=== PATIENT | female | born 1940 | race Caucasian/White ===

== ENCOUNTER → 2023-09-18 09:50 | Outpatient (REF) | payer OTHER, SELFPAY | LOC: PAVMRI 09:50 | PROVIDERS: ATTENDING PHYSICIAN Psychiatry & Neurology Neurology; FAMILY PHYSICIAN Student in an Organized Health Care Education/Training Program | DX: R41.3 Other amnesia (principal) | CPT/HCPCS: 70553; A9575 ==

== ENCOUNTER → 2024-08-21 12:26 | Outpatient (REF) | payer OTHER, SELFPAY | LOC: HWRAD 12:26 | PROVIDERS: ATTENDING PHYSICIAN Student in an Organized Health Care Education/Training Program | DX: R22.9 Localized swelling, mass and lump, unspecified (principal) | CPT/HCPCS: 76882 ==

== ENCOUNTER → 2024-10-23 11:53 | Outpatient (REF) | payer OTHER, SELFPAY | LOC: PAVMRI 11:53 | PROVIDERS: ATTENDING PHYSICIAN Student in an Organized Health Care Education/Training Program | DX: R22.30 Localized swelling, mass and lump, unspecified upper limb (principal) | CPT/HCPCS: 70543; A9575 ==

== ENCOUNTER 2025-03-24 12:40 | Emergency (ER) | payer OTHER, SELFPAY ==
[2025-03-24 12:44] VITALS: BP 136/56
--- NOTE | 2025-03-24 15:52 | ED.GENMED ---
History of Present Illness
General
Chief Complaint: Fall
Time Seen by Provider: 03/24/25 14:36
History of Present Illness
History of Present Illness:
75-year-old female with past medical history of hyperlipidemia and dementia who presented for tripping and falling last evening on the stairs and striking her right shoulder on the ground. No head strike or loss of consciousness. Fall was
witnessed by her . Since the fall she has been complaining of right shoulder pain and is having difficulty moving the shoulder secondary to the pain. No other associated symptoms denies any headache, shortness of breath, chest pain, blurry
vision or neck pain.
Past History
Past History
ED Past Medical History: Arrthythmia, Hypercholesterolemia, Psychiatric (Anxiety) and Other (Spinal stenosis)
ED Past Surgical History: Orthopedic (Right total knee replacement)
Social History
Tobacco: Non-smoker
Alcohol: None
Personal:
Living: with family
Family History
Family History: Other (Kidney stones)
Phy Exam
General Physical Exam
General Presentation: well appearing and no apparent distress
General Skin: warm and dry
General Habitus: normal
General Mental: alert
General Hydration: appears well hydrated
ENT Exam
ENT Exam: EOMI, pharynx normal, neck supple and normocephalic
Eye Exam
Eye Exam: PERRL, cornea clear and conjunctiva normal
Cardiovascular Exam
Cardiovascular Exam: regular rate/rhythm, no edema, no murmur and normal peripheral pulses
Pulmonary Exam
Pulmonary Exam: lungs clear, no respiratory distress, no rales, no crackles, no rhonchi, no stridor, no wheezing and no cough
Gastrointestinal Exam
Gastrointestinal Exam: normal bowel sounds, non tender, soft, no organomegaly, no pulsatile mass and non distended
Neurological Exam
Neurological Exam: alert, oriented x3, no motor deficits, speech normal and other (Baseline)
Musculoskeletal Exam
Musculoskeletal Exam: full ROM, no edema and other (Right shoulder pain)
Skin Exam
Skin Exam: normal color, warm/dry, no rash and no petechia
Psychiatric Exam
Psychiatric Exam: normal mood/affect
Course
Orders/Labs/Results
Orders:
Orders
03/24/25 12:47
Shoulder, Right, Trauma [CR Shoulder, Trauma - Right] Urgent
Comment:
Reason For Exam: fell down six steps and c/o right shoulder pain
03/24/25 14:54
Sling Right-Treatment ONCE
Vital Signs
Initial and Last Documented VS:
Initial Vital Signs
Temp Pulse Resp BP Pulse Ox
36.5 C 57 16 136/56 96
03/24/25 12:44 03/24/25 12:44 03/24/25 12:44 03/24/25 12:44 03/24/25 12:44
Last Documented Vital Signs
Temp Pulse Resp BP Pulse Ox
36.5 C 57 16 136/56 96
03/24/25 12:44 03/24/25 12:44 03/24/25 12:44 03/24/25 12:44 03/24/25 12:44
MDM/Problems Addressed
Differential Diagnosis Includes:
X-ray obtained and shows a right distal clavicle fracture. Patient placed in sling. Recommended Tylenol and ibuprofen for any pain. Pain is comfortable here in the emergency department. The patient did not strike her head and there was no loss
of consciousness and she is not on any blood thinners or antiplatelet agents we will forego CT head at this time. Return precautions discussed with her family who are in agreement with plan. They will follow-up outpatient with orthopedic surgery.
Prefers to [facility] to [place] so referral to [facility] orthopedics was provided.
*Pulse Oximetry
SaO2: 96
Oxygen Mode of Delivery: Room air
Patient hypoxic: no
*Critical Care Note
Total Time (30-74mins, 75-104mins- exclusive of procedures): Not Applicable
ED Attending Note
-
Portions of this chart may have been created with voice recognition software.� Occasional wrong word or��sound alike� substitutions may have occurred due to the inherent limitations of voice recognition software.
Discharge Plan
Departure
Patient Disposition: Home (Routine Discharge)
Date of Disposition: 03/24/25
Time of Disposition: 14:57
Patient with high blood pressure during this ER visit?: No
Discharge Problem:
Clavicle fracture
Instructions: Fractures - Clavicle (Adult)
Prescriptions:
No Action
venlafaxine 75 MG capsule,extended release 24hr
75 mg PO DAILY
clonazepam 0.5 MG tablet
0.25 mg PO BID
atenolol 25 MG tablet
25 mg PO DAILY
diclofenac-misoprostol 1 EACH tablet,IR,delayed rel,biphasic
1 ea PO DAILY
pravastatin 20 MG tablet
20 mg PO DAILY
zolpidem 5 MG tablet
5 mg PO HSPRN PRN (Reason: insomnia)
levofloxacin 250 MG tablet
250 mg PO DAILY Qty: 7 0RF
hydrocodone-acetaminophen 1 TABLET tablet
1 tab PO QIDPRN PRN (Reason: pain) Qty: 6 0RF
Referrals:
[facility] [Provider Group]
Brian Jarvis MD [Active, Orthopedics]
Activity Restrictions/Additional Instructions:
Wear sling until seen by orthopedics in the office. Follow-up with orthopedic surgery within 1 week. May take Tylenol and ibuprofen for any pain.
Interventions
Interventions:
*Risk Screen - Suicide Last Done: 03/24/25 12:44
*General Assessment Last Done: 03/24/25 12:44
*Neglect/Abuse Screening Last Done: 03/24/25 12:44
*ED COVID-19 Vaccine History Last Done: 03/24/25 15:00
*ED Influenza Vaccine History Last Done: 03/24/25 15:00
[facility] Fall Risk Assessment Tool Last Done: 03/24/25 15:00
*Nursing Disposition Last Done: 03/24/25 15:13
ED-Musculoskeletal Assessment Last Done: 03/24/25 15:12
ED- Neurological Assessment Last Done: 03/24/25 15:12
ED-Skin Assessment Last Done: 03/24/25 15:12
Discharge Date and Time
Discharge Date/Time: 03/24/25 15:19
Print Language: ALBANIAN
== END 2025-03-24 15:19 | disposition home or self-care (01) ==
LOC: EMR 12:40
PROVIDERS: EMERGENCY PHYSICIAN Emergency Medicine; FAMILY PHYSICIAN Family Medicine
DX: S42.031A Displaced fracture of lateral end of right clavicle, initial encounter for closed fracture (principal); W10.9XXA Fall (on) (from) unspecified stairs and steps, initial encounter; F03.90 Unspecified dementia, unspecified severity, without behavioral disturbance, psychotic disturbance, mood disturbance, and anxiety; E78.00 Pure hypercholesterolemia, unspecified; F41.9 Anxiety disorder, unspecified; M48.00 Spinal stenosis, site unspecified; Z96.651 Presence of right artificial knee joint
CPT/HCPCS: 99283; 73030